=== PATIENT | female | born 1990 | race Caucasian/White ===

== ENCOUNTER 2018-10-28 06:05 | Day surgery (SDC) | payer BC ==
[~2018-10-28 06:05] MED LIST: Dextrose 5%-0.45% NaCl 1,000 ML IV SCH; Midazolam 1 MG/ML 2 ML SDV ONE; Sodium Chloride 0.9% 10 ML Syringe FLUSH PRN; fentaNYL 100 MCG/2 ML SDV ONE
[2018-10-28] MEDS ORDERED: Midazolam 1 MG/ML 2 ML SDV IV ONE ×7 (06:06→06:56)
[2018-10-28] MEDS ORDERED: fentaNYL 100 MCG/2 ML SDV IV ONE ×4 (06:06→07:02)
--- NOTE | 2018-10-28 07:34 | OR ---
DATE: 10/28/2018 PROCEDURE: Total colonoscopy. INSTRUMENT USED: PCF-H190DL Olympus video colonoscope. PREMEDICATIONS: Fentanyl 150 mcg intravenous, Versed 4 mg intravenous. Nasal O2 cannula. The procedure was done under pulse oximetry, BP recording, and monitoring and evaluation advisor. INDICATION: The patient with rectal bleeding. Colonoscopy examination is done for detection of any polypoid lesions and removal, endoscopic hemostasis therapy if needed. DESCRIPTION OF PROCEDURE: Initial rectal exam was unremarkable. Rigid anoscopy showed small internal hemorrhoids without bleeding from them. The colonoscope was passed with ease to the ileocecal area. Photographs were taken of the normal-appearing cecum, identified by double-bulged ileocecal folds. No bleeding was noted from any of the visualized areas at the commencement of the examination. The bowel preparation was found to be adequate, [place] scale 2 in all the areas. No stricture, no vascular ectasia, no large isolated ulcerations seen. No evidence of diffuse inflammatory bowel disease in the form of friability, contact bleeding, or ulcerations. No polyp or tumor mass identified. Probing the proximal sides of folds and flexures using adequate distention and clearing up the stool material, withdrawal of the scope was made from cecum to rectum, time over 6 minutes. No bleeding was noted from any of the visualized areas at the completion of examination. IMPRESSION: Internal hemorrhoids. The patient tolerated the procedure well. [facility] /[id number]
--- NOTE | 2018-10-28 09:19 | LETTER ---
10/28/2018 Meliza Lewis MD [address] [address] RE: MARGARITA ANNETTE BLEVINS : [address] Lewis: Annette Aniaaaron Dillard had colonoscopic examination done this morning and she tolerated the procedure well. I herewith send a copy of the endoscopy note and photographs for your review. Thank you. Sincerely, [facility] /[id number]
== END 2018-10-28 09:40 | disposition home or self-care (01) ==
LOC: DL.ENDO 06:05
PROVIDERS: ATTEND Internal Medicine Gastroenterology
DX: K62.5 Hemorrhage of anus and rectum (principal); K64.8 Other hemorrhoids
CPT/HCPCS: 45378; J2250; J3010; J7042; G0121

== ENCOUNTER 2019-11-28 10:42 | Inpatient (IN) | payer BC ==
[2019-11-28] MEDS ORDERED: Lactated Ringers 1,000 ML IV ONE (11:23)
[2019-11-28] MEDS ORDERED: Sodium Chloride 0.9% 10 ML Syringe FLUSH PRN (11:23)
[2019-11-28] MEDS ORDERED: Methylergonovine 0.2 MG/1 ML Amp IM PRN (11:23)
[2019-11-28] MEDS ORDERED: Tranexamic Acid 1,000 MG in Sodium Chloride 0.9% 100 ML IV PRN (11:23)
[2019-11-28] MEDS ORDERED: Lidocaine 1% 30 ML SDV INJECT PRN (11:23)
[2019-11-28] MEDS ORDERED: Ondansetron 4 MG/2 ML SDV IVPUSH PRN (11:23)
[2019-11-28] MEDS ORDERED: Carboprost Tromethamine 250 MCG/1 ML Amp IM PRN (11:23)
[2019-11-28] MEDS ORDERED: Misoprostol 400 MCG (4 X 100 MCG TAB) RECTAL PRN (11:23)
[2019-11-28] MEDS ORDERED: Acetaminophen 325 MG Tab PO PRN (11:23)
[2019-11-28] MEDS ORDERED: Oxytocin/Normal Saline 30 UNIT/500 ML BAG IV SCH ×2 (11:30)
[2019-11-28] MEDS: Misoprostol 50 MCG (1/2 of 100 MCG) Tab VAG PRN ×3 (12:12→21:04)
--- NOTE | 2019-11-28 15:02 | PCM.LDHP ---
L&D History of Present Illness - General Date of Service: 11/28/19 (admission h&P) Admit Problem/Dx: Patient Status Order with Admit Dx/Problem 11/28/19 10:40 Admission Diagnosis [ADT] Routine 11/28/19 11:23 Patient Status [ADT] Routine Admission Diagnosis/Problem Admission Diagnosis/Problem Elective induction of labor planned 11/28/19 14:57 29yo primigravida @ 41 weeks gestation in for induction due to post-dates gestation. see notes in EPIC and episode known GBS negative, O+ blood type and rubella non-immune Has had excellent care BPP 10/10 this morning. hmb 11/28/19 21:16 Source of Information: Patient, Family, Old Records, Provider, RN, Significant Other History Limitations: Reports: No Limitations - History of Present Illness Introduction:: Delightful 29yo WF @ 41 weeks gestation 29yo primigravida @ 41 weeks gestation in for induction due to post-dates gestation. see notes in EPIC and episode known GBS negative, O+ blood type and rubella non-immune Has had excellent care BPP 10/10 this morning they have decided to proceed with induction today. cervix ripe. Timing/Duration: Reports: intermittent Location, : Reports: Uterus Quality: Reports: Dull Severity: Mild - Related Data Allergies/Adverse Reactions: Allergies Allergy/AdvReac Type Severity Reaction Status Date / Time No Known Allergies Allergy Verified 11/21/19 08:53 Home Medications: Home Meds Pnv No.95/Ferrous Fum/Folic AC [ Vitamin Tablet] 1 tab PO DAILY 11/21/19 [History] Past Medical History - Past Health History Medical/Surgical History: Denies Medical/Surgical History HEENT History: Reports: Impaired Vision, Other (See Below) Other HEENT History: WEARS GLASSES Cardiovascular History: Reports: None Respiratory History: Reports: None Gastrointestinal History: Reports: None, Hemorrhoids Genitourinary History: Reports: None [employer] DEVELOPER History: Reports: None Musculoskeletal History: Reports: None Neurological History: Reports: None Psychiatric History: Reports: None Endocrine/Metabolic History: Reports: None, Obesity/BMI 30+ Hematologic History: Reports: None Immunologic History: Reports: None Oncologic (Cancer) History: Reports: None Dermatologic History: Reports: None - Infectious Disease History Infectious Disease History: Reports: Chicken Pox, Shingles - Past Surgical History Head Surgeries/Procedures: Reports: None HEENT Surgical History: Reports: None Cardiovascular Surgical History: Reports: None Respiratory Surgical History: Reports: None GI Surgical History: Reports: None Female Surgical History: Reports: None Endocrine Surgical History: Reports: None Neurological Surgical History: Reports: None Musculoskeletal Surgical History: Reports: None Oncologic Surgical History: Reports: None Dermatological Surgical History: Reports: None Social & Family History - Family History Family Medical History: Noncontributory - Tobacco Use Smoking Status *Q: Never Smoker Second Hand Smoke Exposure: No - Caffeine Use Caffeine Use: Reports: None - Recreational Drug Use Recreational Drug Use: No - Living Situation & Occupation Living situation: Reports: Occupation: Employed H&P Review of Systems - Review of Systems: Review Of Systems: Comprehensive ROS is negative, except as noted in HPI. L&D Exam - Exam Exam: See Below - Vital Signs Weight: 189 lb 12.8 oz - OB Specific Contraction Intensity: Mild Movement: Active Heart Tones: Present Heart Tones per Min: 150 (NST +/BPP 10/10) Heart Rate (FHR) Variability: Moderate (6-25 bmp) Presentation: Vertex Estimated Weight: 7 1/2-8 - Thao Score Thao Score Cervix Position: Midposition Thao Score Consistency: Soft Thao Score Effacement: 31-50% Thao Score Dilation: 1-2 cm Thao Score Infant's Station: -2 Thao Score Total: 6 - Exam General: Alert, Oriented HEENT: Conjunctiva Clear, EACs Clear, EOMI, Hearing Intact, Mucosa Moist & [place], Nares Patent, Pupils Equal, Pupils Reactive Neck: Supple, Trachea Midline Lungs: Clear to Auscultation, Normal Respiratory Effort Cardiovascular: Regular Rate, Regular Rhythm GI/Abdominal Exam: Normal Bowel Sounds, Non-Tender Rectal Exam: Deferred Genitourinary: Normal external exam, Enlarged uterus Back Exam: Normal Inspection Extremities: Normal Inspection, Pedal Edema (trace), Other (left sciatica) Skin: Warm, Dry, Intact Neurological: Strength Equal Bilateral, Normal Gait, Normal Speech, Normal Tone, Sensation Intact Psychiatric: Alert, Normal Affect, Normal Mood - Patient Data Lab Results Last 24 hrs: Laboratory Results - last 24 hr 11/28/19 11/28/19 Range/Units 11:00 11:52 WBC 11.5 H (5.0-10.0) 10^3/uL RBC 4.55 (4.2-5.4) 10^6/uL Hgb 13.4 (12.0-16.0) g/dL Hct 38.7 (37.0-47.0) % MCV 85.1 (80-100) fL MCH 29.5 (27.0-34.0) pg MCHC 34.6 (33.0-35.0) g/dL Plt Count 228 (150-450) 10^3/uL COVID-19 (PAIGE) Negative (NEGATIVE) Result Diagrams: 11/28/19 11:52 - Problem List (1) Post-dates SNOMED Code(s): 43122728 ICD Code: O48.0 - POST-TERM Status: Acute Current Visit: Yes (2) Primigravida in third trimester SNOMED Code(s): 406297018, 361140278 ICD Code: Z34.03 - ENCNTR FOR SUPRVSN OF NORMAL FIRST PREG, THIRD TRIMESTER Status: Acute Current Visit: Yes (3) Blood type O+ SNOMED Code(s): 751319239 ICD Code: Z67.40 - TYPE O BLOOD, RH POSITIVE Status: Acute Current Visit: Yes (4) Group B Streptococcus not isolated SNOMED Code(s): 179985692 ICD Code: ERQ5944 - Status: Acute Current Visit: Yes (5) Rubella non-immune status, antepartum SNOMED Code(s): 377776243 ICD Code: O99.89 - OTH DISEASES AND CONDITIONS COMPL PREG/CHLDBRTH; Z28.3 - UNDERIMMUNIZATION STATUS Status: Acute Current Visit: Yes Problem List Initiated/Reviewed/Updated: Yes Orders Last 24hrs: Active Orders 24 hr Category Date Time Status Admission Diagnosis [ADT] Routine ADT 11/28/19 10:40 Ordered Patient Status [ADT] Routine ADT 11/28/19 11:23 Active Notify Provider Vital Signs OB [RC] ASDIRECTED Care 11/28/19 11:23 Active Notify Provider [RC] PRN Care 11/28/19 11:23 Active Notify Provider [RC] PRN Care 11/28/19 11:26 Active Notify Provider [RC] PRN Care 11/28/19 11:26 Active Notify Provider [RC] STAT Care 11/28/19 11:26 Active Pump Management, Intrathecal [RC] ASDIRECTED Care 11/28/19 11:24 Active Up ad Anita [RC] ASDIRECTED Care 11/28/19 11:23 Active Vaginal Exam [RC] PRN Care 11/28/19 11:26 Active Vital Signs [RC] PER UNIT ROUTINE Care 11/28/19 11:23 Active Acetaminophen [TylenoL] Med 11/28/19 11:23 Active 650 mg PO Q4H PRN Carboprost Tromethamine [Hemabate DS] Med 11/28/19 11:23 Active 250 mcg IM ASDIRECTED PRN Lactated Ringers [Ringers, Lactated] 1,000 ml Med 11/28/19 11:30 Active IV ASDIRECTED Lidocaine 1% [Xylocaine-MPF 1%] Med 11/28/19 11:23 Active 30 ml INJECT ASDIRECTED PRN Methylergonovine [Methergine] Med 11/28/19 11:23 Active 0.2 mg IM ASDIRECTED PRN Ondansetron [Zofran] Med 11/28/19 11:23 Active 4 mg IVPUSH Q4H PRN Oxytocin/Normal Saline [Pitocin in NS 30 UNIT/500 ML] Med 11/28/19 11:30 Active 30 unit in 500 ml IV TITRATE Oxytocin/Normal Saline [Pitocin in NS 30 UNIT/500 ML] Med 11/28/19 11:30 Active 30 unit in 500 ml IV TITRATE Sodium Chloride 0.9% [Saline Flush] Med 11/28/19 11:23 Active 10 ml FLUSH ASDIRECTED PRN Tranexamic Acid [Cyklokapron] 1,000 mg Med 11/28/19 11:23 Active Sodium Chloride 0.9% [Normal Saline] 100 ml IV ONETIME miSOPROStoL [Cytotec] Med 11/28/19 11:25 Active 50 mcg VAG Q4H PRN miSOPROStoL [Cytotec] Med 11/28/19 11:23 Active 800 mcg RECTAL ASDIRECTED PRN Peripheral IV Insertion Adult [OM.PC] Urgent Oth 11/28/19 11:26 Ordered Saline Lock Insert [OM.PC] Routine Oth 11/28/19 11:23 Ordered Resuscitation Status Routine Resus Stat 11/28/19 11:23 Ordered Medication Orders Acetaminophen (Tylenol) 650 mg PO Q4H PRN PRN Reason: Pain (Mild 1-3) and fever Carboprost Tromethamine (Hemabate Ds) 250 mcg IM ASDIRECTED PRN PRN Reason: HEMORRHAGE Lactated Ringer's (Ringers, Lactated) 1,000 mls @ 125 mls/hr IV ASDIRECTED CAIN Tranexamic Acid 1,000 mg/ (Sodium Chloride) 110 mls @ 660 mls/hr IV ONETIME PRN PRN Reason: Bleeding Oxytocin/Sodium Chloride (Pitocin In Ns 30 Unit/500 Ml) 30 unit in 500 mls @ 2 mls/hr IV TITRATE CAIN; Protocol Oxytocin/Sodium Chloride (Pitocin In Ns 30 Unit/500 Ml) 30 unit in 500 mls @ 2 mls/hr IV TITRATE CAIN; Protocol Lidocaine HCl (Xylocaine-Mpf 1%) 30 ml INJECT ASDIRECTED PRN PRN Reason: Perineal Repair Methylergonovine Maleate (Methergine) 0.2 mg IM ASDIRECTED PRN PRN Reason: Hemorrhage Misoprostol (Cytotec) 800 mcg RECTAL ASDIRECTED PRN PRN Reason: Hemorrhage Misoprostol (Cytotec) 50 mcg VAG Q4H PRN PRN Reason: cervical ripening Last Admin: 11/28/19 12:12 Dose: 50 mcg Documented by: CATHY Ondansetron HCl (Zofran) 4 mg IVPUSH Q4H PRN PRN Reason: Nausea/Vomiting Sodium Chloride (Saline Flush) 10 ml FLUSH ASDIRECTED PRN PRN Reason: Keep Vein Open Assessment/Plan Comment:: Assessment: Spring is 29yo primigravida post-dates @ 41w0d presenting for induction/elective with ripe cervix blood type O+ rubella non-immune GBS negative BPP 01/20 Plan: COVID testing on admit negative CBC drawn Cytotec 50mcg placed plan to repeat cytotec as indicated, consider AROM, consider pitocin intrathecal as appropriate if desired further management pending her course in labor rubella immunization all questions answered for Spring and Michele, and they seem happy with care and plan. b
[2019-11-28] MEDS ORDERED: hydrOXYzine HCl 25 MG Tab PO ONE (21:00)
[2019-11-29] MEDS: Lactated Ringers 1,000 ML IV SCH ×6 (00:53→18:31)
[2019-11-29] MEDS ORDERED: fentaNYL 100 MCG/2 ML SDV IVPUSH STA (07:53)
--- NOTE | 2019-11-29 09:09 | PCM.SN.2 ---
- Free Text/Narrative Note: DOS: 11-29-2019 Spring is 29yo @ 41w1d admitted for induction yesterday due to postdates . cytotec X 3 started on pitocin infusion this morning, currently up to 4 cxn strength increased and she is breathing through them. requesting pain control has had fentanyl, nitrox and bath cervix 5+, 100% effaced, vertex well applied, AROM, clear fluid, 0 to 1+ station will order intrathecal and increase pitocin as able, placing internal monitors if needed. status reassuring. continue to monitor closely. further management pending her course in labor. all questions answered for Suki. staff aware of plan. b
[2019-11-29] MEDS ORDERED: fentaNYL 100 MCG/2 ML SDV ONE (09:36)
[2019-11-29] MEDS ORDERED: EPINEPHrine 1 MG/1 ML Amp ONE ×2 (09:36→09:40)
[2019-11-29] MEDS ORDERED: fentaNYL 100 MCG/2 ML SDV ITHECAL ONE (09:40)
--- NOTE | 2019-11-29 10:46 | PCM.PRNOTE ---
- Free Text/Narrative Note: Requested to provide analgesia to full term patient in severe pain. Upon entering the room, patient is sitting on edge of bed complaining of severe abdominal/pelvic pain and discomfort. Procedure was discussed with patient including adverse outcomes and expectations. Pt consented to analgesia, SAB/IT. Pt placed into a proper sitting position. Landmarks for SAB/IT were identified and marked. Hands were washed and appropriate PPE was applied. Back was prepped with betadine x3. A sterile, transparent, fenestrated drape was applied. Excess betadine was removed. Using 3 mL of a 1% lidocaine solution, a skin wheel was placed at the L2/L3 interspace. A 24 ga (4 inch) Pencan spinal needle was inserted until positive for CSF. Negative for heme, transient paresthesia to left leg. Resolved in seconds. Injected fentanyl 15 mcg, sufentanil 25 mcg, and 7.5 mg of a 0.75% bupivacaine solution with an epi wash. Pt was placed left lateral position for approximately 20 minutes. There were zero complications or adverse outcomes. Will continue to monitor. Procedure Date & Time:
[2019-11-29] MEDS ORDERED: Oxytocin/Normal Saline 60 UNIT/1,000 ML BAG ONE (12:34)
[2019-11-29] MEDS ORDERED: Citric Acid/Sodium Citrate Solution 30 ML Cup PO ONE (13:00)
[2019-11-29] MEDS: ceFAZolin 2 GM in Premix Bag 1 BAG IV STA ×2 (13:28→15:45)
[2019-11-29] MEDS ORDERED: Ondansetron 4 MG/2 ML SDV IV ONE (13:30)
[2019-11-29] MEDS ORDERED: Lactated Ringers 1,000 ML IV ONE (13:30)
[2019-11-29] MEDS ORDERED: Ketorolac 30 MG/ML SDV IVPUSH ONE (13:30)
[2019-11-29] MEDS ORDERED: Dexamethasone 4 MG/ML SDV IV ONE (13:30)
[2019-11-29] MEDS ORDERED: Morphine PF 1 MG/ML Amp ITHECAL ONE (13:30)
[2019-11-29] MEDS ORDERED: Oxytocin/Normal Saline 30 UNIT/500 ML BAG IV ONE (16:01)
--- NOTE | 2019-11-29 16:46 | PN ---
DATE: 11/29/2019 A 29-year-old primigravida who was admitted yesterday at 41 weeks' gestation for induction due to postdates . She underwent Cytotec x3 followed by Pitocin augmentation and artificial rupture of membranes. She progressed on and received intrathecal analgesia. However, her cervical change arrested at approximately 6 to 7 cm dilation. She developed some non-reassuring heart tone tracings with decreased variability and some recurrent late decelerations. Internal monitors were placed. IV fluid boluses given. She was repositioned. Oxygen was placed. The patient wished to wait and see if these changes would recover prior to going to section. Her cervix was extremely thin. The baby was at a +1 station. Checking again later, her Pitocin had been discontinued. heart tone tracing remained at a category 2. The cervix was able to slip over the baby's head and just a rim was remaining and she was able to push down to a +2 station. She was feeling some pressure with contractions. She did wish to have a trial of vacuum and did make a slight amount of progress with pushing, therefore, a low-profile cup was placed on the baby's head and we did attempt vacuum with one contraction, however, no progress was made and an increasing caput and moulding was noted, therefore, we elected not to proceed with any further attempt. Subsequently, decision was made to go to low-transverse section. Reviewed alternatives, risks, and benefits, and they wished to proceed. Risks included, but were not limited to, blood clots such as PE and DVT and the use of JANINA stockings, SCDs and early mobilization, the risk of hemorrhage and possible need of blood transfusion with its inherent risks, risk of infection and use of antibiotics, injury to the fetus or mother and maternal organs, all of their questions were answered. We will plan on using Bicitra, 2 g of Ancef preop. Dr. Ramirez will be assisting. Consent was obtained and a consent form signed. We will proceed with spinal anesthesia. We will continue to monitor status. Further management pending the course. [facility] /[id number]
[2019-11-29] MEDS ORDERED: diphenhydrAMINE 50 MG/ML SDV IVPUSH PRN (18:31)
[2019-11-29] MEDS ORDERED: Acetaminophen/oxyCODONE 325-5 MG Tab PO PRN (18:31)
[2019-11-29] MEDS ORDERED: Naloxone 2 MG/2 ML Syringe IVPUSH PRN (18:31)
[2019-11-29] MEDS ORDERED: ePHEDrine 50 MG/ML SDV IVPUSH PRN (18:31)
[2019-11-29] MEDS: Ketorolac 30 MG/ML SDV IVPUSH SCH (20:00)
--- NOTE | 2019-11-29 20:46 | OR ---
DATE: 11/29/2019 PREOPERATIVE DIAGNOSES: 1. A 29-year-old 1, para 0, at 41 weeks 1 day. 2. Failed induction with unsuccessful vacuum attempt. 3. Suspect cephalopelvic disproportion. 4. Nonreassuring status. 5. O positive blood type. 6. Group B strep negative. 7. Rubella nonimmune. POSTOPERATIVE DIAGNOSES: 1. A 29-year-old 1, now para 1, at 41 weeks 1 day. 2. Failed induction with unsuccessful vacuum attempt. 3. Suspect cephalopelvic disproportion. 4. Nonreassuring status. 5. O positive blood type. 6. Group B strep negative. 7. Rubella nonimmune. 8. Primary low transverse section with confirmed cephalopelvic disproportion, nonreassuring status, right occiput posterior presentation. 9. Viable female infant, 6 pounds 15 ounces/3155 g. 10. scores 7, 8, and 8 at one, five, and ten minutes respectively. PROCEDURE: Primary low transverse section. ASSISTING: Bailey Ramirez MD FINDINGS: This delightful 29-year-old 1, para 0, presented at 41 weeks' gestation for induction due to postdates . She underwent Cytotec x3, artificial rupture of membranes, Pitocin augmentation, internal placement of IUPC and scalp electrode, and unsuccessful low-profile vacuum attempt. Due to suspected CPD, nonreassuring status, and suspected ROP position, she was brought down for primary section. Hood catheter had been placed on the floor. She had intrathecal in place with excellent results. DESCRIPTION OF PROCEDURE: She underwent spinal placement in the OR and was subsequently prepped and draped in the usual sterile manner. A purple surgical marker was used to pankaj our intended incision site. Anesthesia was tested and found to be excellent. A scalpel was used to make a skin incision. This was carried down through the subcutaneous tissue with electrocautery to the fascia, which was divided transversely. Superior and inferior fascial flaps were developed with sharp and blunt dissection. Rectus was identified and divided in the midline. The peritoneum was identified and entered bluntly and the incision was opened until we had excellent visualization of the lower uterine segment. The bowel was compromising the visualization of the surgical site as seen. Therefore, it was pushed out of the way and immobilized with lap pads. Large Terence retractor was placed. A bladder flap was developed with sharp and blunt dissection. A stab incision was made into the lower uterine segment and return of clear fluid was noted. Incision was extended transversely with blunt dissection. The baby was found to be in an ROP position and the vertex was elevated up into the incision. This viable female infant was delivered and found to have cord wrapped around the right shoulder and partially around the neck. It easily was reduced. The baby was suctioned, dried, and stimulated at . The cord was doubly clamped by me and cut and the baby was carried to the warmer by Dr. Ramirez to the waiting nursery staff for further drying and stimulation. scores were 7, 8, and 8 at one, five, and ten minutes respectively. Weight was found to be 6 pounds 15 ounces/3155 g. A cord blood sample was obtained by me. Three-vessel cord was noted. Placenta was removed and later inspected and found to be complete intact with a central cord insertion. Uterus was suctioned, examined, and found to have complete placental removal with no evidence of placental remnants. Incision edges were grasped with Crouch forceps. Incision was closed with a running locking 0 Vicryl suture. A second imbricating layer was placed with excellent hemostasis and uatsdin of normal anatomy. Incision was again inspected and found to be dry. There was no sign of active bleeding and the gutters appeared clean. The Terence retractor was removed and the gutters were again inspected and no sign of active bleeding. The incision was again inspected with no sign of active bleeding. Intermittent stitches placed in the peritoneum to maintain the bowel in anatomic location with good results. Fascia was then closed with running Maxon loop suture with excellent results. Subcutaneous tissue was then examined and irrigated. Electrocautery used to stop any areas of bleeding that were seen. The skin edges closed with a Mckay needle and a subcuticular suture. Steri-Strips were applied and the patient tolerated the procedure well. There were no intraoperative complications. ESTIMATED BLOOD LOSS: 400 mL. All counts were correct. The patient received 2 g of Ancef preop antibiotic and is currently receiving Pitocin IV infusion per protocol. She was transferred to the recovery room in stable condition with routine postop orders and cares. [facility] /[id number]
[2019-11-29] MEDS: Docusate Sodium 100 MG Cap PO PRN (20:49)
[2019-11-29] MEDS: Simethicone 80 MG Tab.Chew PO SCH (20:49)
[2019-11-29] MEDS: ceFAZolin 1 GM in Premix Bag 1 BAG IV SCH (21:50)
[2019-11-30] MEDS: Ketorolac 30 MG/ML SDV IVPUSH SCH ×2 (01:59→08:04)
[2019-11-30] MEDS: Lactated Ringers 1,000 ML IV SCH (02:46)
[2019-11-30] MEDS: ceFAZolin 1 GM in Premix Bag 1 BAG IV SCH ×2 (05:54→13:00)
[2019-11-30] MEDS: Docusate Sodium 100 MG Cap PO PRN (08:03)
[2019-11-30] MEDS: Simethicone 80 MG Tab.Chew PO SCH ×4 (08:04→21:34)
--- NOTE | 2019-11-30 09:32 | PCM.SN.2 ---
- Free Text/Narrative Note: DOS: 11-30-19 POD #1 doing well
[2019-11-30] MEDS: Acetaminophen/oxyCODONE 325-5 MG Tab PO PRN ×2 (13:21→17:16)
[2019-11-30] MEDS: Ibuprofen 800 MG Tab PO PRN (17:14)
[2019-12-01] MEDS: Ibuprofen 800 MG Tab PO PRN ×3 (00:53→17:40)
[2019-12-01] MEDS: Acetaminophen/oxyCODONE 325-5 MG Tab PO PRN ×4 (04:09→17:41)
[2019-12-01] MEDS: Simethicone 80 MG Tab.Chew PO SCH ×4 (09:34→22:23)
[2019-12-01] MEDS: Docusate Sodium 100 MG Cap PO PRN ×2 (09:34→22:23)
[2019-12-01] MEDS ORDERED: Measles, Mumps & Rubella Vaccine 0.5 ML SDV SUBCUT ONE (11:43)
--- NOTE | 2019-12-01 11:48 | PCM.SN.2 ---
- Free Text/Narrative Note: DOS: 12-01-2019 POD #2 s/p PLTCS doing well. Hood out and voiding well spinal resolved. ambulating and moving about room easily. IV out. eating and drinking well. LOCO on awaking, improved now. not nursing. no new concerns. Afebrile VSS O2 sat 100% on RA exam WNL for POD #2 abdomen soft BS present feet.legs puffy plans to shower. MMR ordered. CBC ordered for a.m. tomorrow and plan discharge for tomorrow likely. all questions answered for Suki. b
[2019-12-02] MEDS: Docusate Sodium 100 MG Cap PO PRN (08:27)
[2019-12-02] MEDS: Ibuprofen 800 MG Tab PO PRN (08:27)
[2019-12-02] MEDS: Simethicone 80 MG Tab.Chew PO SCH ×2 (08:28→13:40)
[2019-12-02] MEDS: Acetaminophen/oxyCODONE 325-5 MG Tab PO PRN (08:28)
== END 2019-12-02 13:00 | disposition home or self-care (01) | DRG 540 ==
LOC: DL.OBCHECK 10:42 → DL.OB 11:20 → OBSVTOIN 11-29 13:53 → DL.MS 11-30 17:13
PROVIDERS: ADMIT Family Medicine; ATTEND Family Medicine
PROC: 10D00Z1 Extraction of Products of Conception, Low, Open Approach (ICD-10-PCS; principal; 2019-11-29)
PROC: 10907ZC Drainage of Amniotic Fluid, Therapeutic from Products of Conception, Via Natural or Artificial Opening (ICD-10-PCS; 2019-11-29)
PROC: 3E0P7VZ Introduction of Hormone into Female Reproductive, Via Natural or Artificial Opening (ICD-10-PCS; 2019-11-29)
PROC: 10H07YZ Insertion of Other Device into Products of Conception, Via Natural or Artificial Opening (ICD-10-PCS; 2019-11-29)
DX: O48.0 Post-term pregnancy (principal); Z3A.41 41 weeks gestation of pregnancy; O33.9 Maternal care for disproportion, unspecified; Z37.0 Single live birth; Z11.59 Encounter for screening for other viral diseases
CPT/HCPCS: 01961; 01967; 36415; 51702; 59025; 59409; 85027; 86850; 86900; 86901; 90471; 90707; A9270-GY; J0171; J0690; J1100; J1885; J2274; J2405; J2590; J3010; J7120; U0002

== ENCOUNTER 2024-02-02 09:40 | Inpatient (IN) | payer OTHER ==
[2024-02-02] MEDS ORDERED: Tranexamic Acid 1,000 MG in Sodium Chloride 0.9% 100 ML IV PRN ×2 (10:00→13:07)
[2024-02-02] MEDS ORDERED: Carboprost Tromethamine 250 MCG/1 ML Amp IM PRN ×2 (10:00→13:07)
[2024-02-02] MEDS ORDERED: Oxytocin 10 Units/1 ML SDV IM PRN (10:00)
[2024-02-02] MEDS ORDERED: Methylergonovine 0.2 MG Tab PO PRN (10:00)
[2024-02-02] MEDS ORDERED: Sodium Chloride 0.9% 10 ML Syringe FLUSH PRN (10:00)
[2024-02-02] MEDS ORDERED: Lactated Ringers 1,000 ML IV SCH (10:00)
[2024-02-02] MEDS: Lactated Ringers 1,000 ML IV SCH ×2 (10:05→16:30)
[2024-02-02 10:17] LABS: BASOPHILS PERCENT AUTO 0.1 % (0.0-1.0); EOSINOPHILS PERCENT AUTO 1.5 % (1.0-3.0); HEMATOCRIT 41.1 % (37.0-47.0); LYMPHOCYTES PERCENT AUTO 26.1 % (20.5-50.1); MEAN CORPUSCULAR HEMOGLOBIN 28.7 pg (27.0-34.0); MEAN CORPUSCULAR HGB CONC 34.1 g/dL (33.0-35.0); MEAN CORPUSCULAR VOLUME 84.4 fL (80-100); MONOCYTES PERCENT AUTO 6.2 % (2-8); NEUTROPHILS PERCENT AUTO 66.1 % (42.2-75.2); PLATELET COUNT,PLT 236 10^3/uL (150-450); RED BLOOD CELL COUNT 4.87 10^6/uL (4.2-5.4)
[2024-02-02] MEDS ORDERED: Morphine PF 10 MG/10 ML SDV ONE (10:56)
[2024-02-02] MEDS ORDERED: Dexamethasone 4 MG/ML SDV ONE ×2 (10:57→11:15)
[2024-02-02] MEDS ORDERED: Ketorolac 30 MG/ML SDV ONE (10:57)
[2024-02-02] MEDS ORDERED: Oxytocin 10 Units/1 ML SDV ONE (10:57)
[2024-02-02] MEDS ORDERED: Ondansetron 4 MG/2 ML SDV ONE (10:57)
[2024-02-02] MEDS ORDERED: Rocuronium 100 MG/10 ML MDV ONE (11:01)
[2024-02-02] MEDS ORDERED: Succinylcholine 200 MG/10 ML MDV ONE (11:01)
[2024-02-02] MEDS: Sodium Chloride 0.9% 10 ML Syringe FLUSH SCH (11:02)
[2024-02-02] MEDS ORDERED: Propofol 200 MG/20 ML SDV ONE (11:09)
[2024-02-02] MEDS ORDERED: Phenylephrine 1% 10 MG/ML SDV ONE (11:16)
[2024-02-02] MEDS ORDERED: ePHEDrine 50 MG/ML SDV ONE (11:16)
[2024-02-02] MEDS ORDERED: ceFAZolin 2 GM Vial ONE (12:12)
[2024-02-02] MEDS: Oxytocin/Normal Saline 30 UNIT/500 ML BAG IV SCH (13:05)
[2024-02-02] MEDS ORDERED: Acetaminophen/oxyCODONE 325-5 MG Tab PO PRN (13:07)
[2024-02-02] MEDS ORDERED: ePHEDrine 50 MG/ML SDV IVPUSH PRN (13:07)
[2024-02-02] MEDS ORDERED: Naloxone 2 MG/2 ML Syringe IVPUSH PRN (13:07)
[2024-02-02] MEDS ORDERED: Misoprostol 100 MCG Tab RECTAL PRN (13:07)
[2024-02-02] MEDS ORDERED: Methylergonovine 0.2 MG/1 ML Amp IM PRN (13:07)
[2024-02-02] MEDS ORDERED: Ondansetron 4 MG/2 ML SDV IVPUSH PRN (13:07)
[2024-02-02] MEDS ORDERED: Acetaminophen 325 MG Tab PO PRN (13:07)
[2024-02-02] MEDS: diphenhydrAMINE 50 MG/ML SDV IVPUSH PRN (15:41)
[2024-02-02] MEDS: Measles, Mumps & Rubella Vaccine 0.5 ML SDV SUBCUT ONE (16:07)
[2024-02-02] MEDS: ceFAZolin 2 GM Vial IVPUSH ONE (17:19)
[2024-02-02] MEDS: Simethicone 80 MG Tab.Chew PO SCH (18:03)
[2024-02-02] MEDS: Ketorolac 30 MG/ML SDV IVPUSH SCH (18:03)
[2024-02-03 07:07] LABS: HEMATOCRIT 30.2 % (37.0-47.0); MEAN CORPUSCULAR HEMOGLOBIN 28.9 pg (27.0-34.0); MEAN CORPUSCULAR HGB CONC 33.1 g/dL (33.0-35.0); MEAN CORPUSCULAR VOLUME 87.3 fL (80-100); RED BLOOD CELL COUNT 3.46 10^6/uL (4.2-5.4); WHITE BLOOD CELL COUNT,WBC 13.4 10^3/uL (5.0-10.0)
[2024-02-03] MEDS: Prenatal Multivitamin with Calcium/Folic Acid/Iron Tab PO SCH (07:58)
[2024-02-03] MEDS: Famotidine 20 MG Tab PO PRN (08:15)
[2024-02-03] MEDS: Ibuprofen 800 MG Tab PO SCH (14:29)
[2024-02-03] MEDS: Acetaminophen/oxyCODONE 325-5 MG Tab PO PRN (14:40)
[2024-02-03] MEDS: Docusate Sodium 100 MG Cap PO PRN (20:49)
== END 2024-02-04 15:15 | disposition home or self-care (01) | DRG 787 ==
LOC: DL.OB 09:40 → OBSVTOIN 09:40
PROVIDERS: ADMIT Family Medicine; ATTEND Family Medicine
PROC: 10D00Z1 Extraction of Products of Conception, Low, Open Approach (ICD-10-PCS; principal; 2024-02-02 12:00)
DX: O34.211 Maternal care for low transverse scar from previous cesarean delivery (principal); D62 Acute posthemorrhagic anemia; O99.214 Obesity complicating childbirth; Z3A.39 39 weeks gestation of pregnancy; Z37.0 Single live birth; O90.81 Anemia of the puerperium
CPT/HCPCS: 36415; 59025; 85025; 85027; 86850; 86900; 86901; A9270-GY; J0330; J1200; J1885; J2590; J7120